=== PATIENT | male | born 1960 | race Asian ===

== ENCOUNTER 2021-11-26 15:08 | Observation (INO) | payer OTHER ==
[2021-11-26] MEDS ORDERED: MORPHINE 4 MG/ML SYR ONE ×2 (15:45→18:10)
[2021-11-26] MEDS ORDERED: ONDANSETRON 4 MG/2 ML VIAL ONE (15:45)
[2021-11-26 15:47] LABS: Absolute Lymphocytes (CBC) 0.8 K/uL (0.7-4.9); Hematocrit 47.3 % (39.6-49.0); Lymphocytes % 6.5 % (15.3-44.8); MPV 9.2 fL (7.6-11.3); RBC Red Blood Cell Count 5.47 M/uL (4.33-5.43)
[2021-11-26] MEDS ORDERED: TETANUS & DIPHTHERIA TOX,ADULT 0.5 ML VIAL ONE (15:47)
[2021-11-26 15:51] LABS: Protime INR 1.05
[2021-11-26 16:00] LABS: Albumin 4.4 g/dL (3.4-5.0); Bilirubin Total 0.9 mg/dL (0.2-1.0); Potassium 3.8 mmol/L (3.5-5.1); Protein, Total 7.5 g/dL (6.4-8.2)
[2021-11-26 16:46] LABS: Blood Morphology Comment NOT SEEN (NOT SEEN); Platelet Estimate ADEQ; White Blood Cell Scan OK (OK)
[2021-11-26 21:53] LABS: Protime INR 1.07
[2021-11-27] MEDS ORDERED: HYDROCODONE/APAP 5/325 MG TAB ONE ×2 (00:20→10:55)
[2021-11-27] MEDS ORDERED: NA CHLORIDE 0.9% 250 ML ONE (01:03)
[2021-11-27] MEDS ORDERED: CROTALIDAE ANTIVENIM 1 GM VIAL IV ONE ×2 (01:04)
[2021-11-27 03:27] LABS: SARS-COV-2 RT PCR NEGATIVE (NEGATIVE)
--- NOTE | 2021-11-27 03:28 | EDPHYS ---
Physician Documentation [facility] Name: Everton Keane Age: 60 yrs Sex: Male : 1960 Arrival Date: 11/26/2021 Time: 15:09 Bed 27 Private MD: Sia Cooper ED Physician Tuan Bennett HPI: 11/26 15:46 This 60 yrs old Male presents to ER via Ambulatory with complaints of Snake bite. ma2 15:46 Onset: The symptoms/episode began/occurred suddenly, 1 hour(s) ago. Associated signs ma2 and symptoms: Pertinent negatives: fever, loss of consciousness, numbness distal to wound, pain at site. Severity of symptoms: At their worst the symptoms were mild, in the emergency department the symptoms are unchanged. Patient had snakebite copperhead bite to ring and thumb, there is mild swelling of both ring, thumb finger and hand, however according to patient swelling has improved. No swelling beyond the wrist.. Historical: - Allergies: 15:24 No Known Allergies; iw - Immunization history:: Adult Immunizations unknown. - Social history:: Smoking status: unknown. - Family history:: not pertinent. ROS: 15:46 Constitutional: Negative for fever, chills, and weight loss. ma2 15:46 All other systems are negative. Exam: 15:46 Constitutional: This is a well developed, well nourished patient who is awake, alert, ma2 and in no acute distress. Chest/axilla: Normal chest wall appearance and motion. Nontender with no deformity. No lesions are appreciated. Cardiovascular: Regular rate and rhythm with a normal S1 and S2. No gallops, murmurs, or rubs. Normal PMI, no JVD. No pulse deficits. Respiratory: Lungs have equal breath sounds bilaterally, clear to auscultation and percussion. No rales, rhonchi or wheezes noted. No increased work of breathing, no retractions or nasal flaring. Abdomen/GI: Soft, non-tender, with normal bowel sounds. No distension or tympany. No guarding or rebound. No evidence of tenderness throughout. Skin: Warm, dry with normal turgor. Normal color with no rashes, no lesions, and no evidence of cellulitis. MS/ Extremity: To snake bites to left finger thumb and ring, there is swelling of both fingers involved the hand as well, there is no swelling beyond the wrist, no compartment syndrome cap refill is brisk and is well vascularized, otherwise pulses equal, no cyanosis. Neurovascular intact. Full, normal range of motion. Neuro: Awake and alert, GCS 15, oriented to person, place, time, and situation. Cranial nerves II-XII grossly intact. Motor strength 5/5 in all extremities. Sensory grossly intact. Cerebellar exam normal. Normal gait. Vital Signs: 15:30 BP 149 / 97; Pulse 85; Resp 18; Pulse Ox 98% on R/A; ph 16:59 BP 136 / 89; Pulse 57; Resp 18; Pulse Ox 98% on R/A; ph 18:31 BP 135 / 80; Pulse 74; Resp 18; Pulse Ox 96% on R/A; ph 19:39 BP 153 / 87; Pulse 75; Resp 18 S; Pulse Ox 98% on R/A; as6 22:06 BP 150 / 91; Pulse 72; Resp 17; Pulse Ox 99% on R/A; Pain 6/10; lg3 23:40 Pulse 76; Resp 18 S; Pulse Ox 98% on R/A; as6 23:41 BP 134 / 87; as6 04/20 00:30 BP 138 / 85; Pulse 60; Resp 18; Pulse Ox 97% on R/A; oe 01:40 BP 159 / 89; Pulse 68; Resp 17; Pulse Ox 95% on R/A; lg3 03:02 BP 113 / 64; Pulse 57; Resp 18 S; Pulse Ox 94% on R/A; as6 05:05 BP 131 / 81; Pulse 53; Resp 14; Pulse Ox 97% on R/A; wm 06:37 BP 131 / 81; Pulse 60; Resp 16; Pulse Ox 96% on R/A; wm MDM: 11/26 15:32 Patient medically screened. ma2 18:39 Differential diagnosis: Snakebite, left arm, has improved, I reassessed at 1839, there ma2 is no spread of the swelling, pain has improved, will continue to monitor for 2 more hours. No indication for intervention at this time. Data reviewed: vital signs, nurses notes. Counseling: I had a detailed discussion with the patient and/or guardian regarding: the historical points, exam findings, and any diagnostic results supporting the discharge/admit diagnosis, the presence of at least one elevated blood pressure reading (>120/80) during this emergency department visit, . ED course: With signout to upcoming ED physician Dr. Bennett due to shift change.. 11/27 02:38 Data interpreted: Pulse oximetry: on room air is 97 %. Interpretation: normal. Response mh7 to treatment: the patient's symptoms have mildly improved after treatment. 11/26 15:32 Order name: PT-INR; Complete Time: 16:14 ny2 11/26 15:32 Order name: Ptt, Activated; Complete Time: 16:14 ny2 11/26 15:32 Order name: CBC with Diff; Complete Time: 17:50 ma2 11/26 15:32 Order name: CMP; Complete Time: 16:14 ny2 11/26 16:47 Order name: CBC Smear Scan; Complete Time: 17:50 EDMS 11/26 20:02 Order name: CPK; Complete Time: 22:09 [facility] 11/26 20:04 Order name: D-Dimer; Complete Time: 22:09 7 11/26 20:19 Order name: Fibrinogen; Complete Time: 22:09 EDMS 11/26 20:49 Order name: Protime (+inr); Complete Time: 22:09 7 11/26 20:49 Order name: Ptt, Activated; Complete Time: 22:09 [facility] 11/27 01:11 Order name: COVID-19/FLU A+B (Document "Date of Onset" if Symptomatic) lg3 11/27 03:27 Order name: COVID-19/FLU A+B; Complete Time: 12:36 EDMS Administered Medications: 11/26 16:00 Drug: Zofran (Ondansetron) 4 mg Route: IVP; Site: right forearm; ph 18:33 Follow up: Response: No adverse reaction; Nausea is decreased ph 16:03 Drug: morphine 4 mg Route: IVP; Site: right forearm; ph 16:15 Follow up: Response: No adverse reaction; Pain is decreased ph 18:15 Drug: Tetanus-Diphtheria Toxoid Adult 0.5 ml {Body Former: [employer]. Exp: ph 10/19/2023. Lot #: [id number]. } Route: IM; Site: left deltoid; 18:32 Follow up: Response: No adverse reaction ph 18:30 Drug: morphine 4 mg Route: IVP; Site: right forearm; ph 18:32 Follow up: Response: No adverse reaction; RASS: Alert and Calm (0) ph 11/27 00:19 Drug: HYDROcodone-acetaminophen 5 mg-325 mg 1 tabs Route: PO; lg3 00:19 Follow up: Response: No adverse reaction lg3 01:35 Drug: CroFab 4 vials Route: IV; Rate: per protocol; Site: right forearm; as6 03:03 Follow up: Response: No adverse reaction; IV Status: Completed infusion; IV Intake: as6 250ml Disposition Summary: 11/27/21 02:40 Hospitalization Ordered Hospitalization Status: Inpatient Admission [facility] Provider: Pranav Dunn Condition: Stable [facility] Problem: new [facility] Symptoms: have improved [facility] Bed/Room Type: Standard [facility] Location: Telemetry/MedSurg (Inpatient)(11/27/21 09:14) bd Room Assignment: [facility](11/27/21 09:14) bd Diagnosis - Snake bite, Left Hand [facility] Forms: - Medication Reconciliation Form [facility] - SBAR form [facility] Signatures: Dispatcher [employer] EDMS Valerie Melton Corey, MD MD cha Williams, Irene, RN RN Sakshi Santos RN RN ph Garcia, Cindy, RN RN Pranav Joseph MD MD ma2 Gibson, Lacie, RN RN lg3 Tuan Bennett MD MD 7 Travis Villalobos RN RN as6 Sybil Duran RN RN vc1 Corrections: (The following items were deleted from the chart) 11/26 20:19 20:04 FIBRINOGEN+COAG.LAB.BRZ ordered. EDMS EDMS 11/27 03:52 02:40 Telemetry/MedSurg (Inpatient) mh7 cg 03:52 02:40 mh7 cg 09:14 03:52 [facility] ER HOLD cg bd 09:14 03:52 ERHOLD- cg bd
--- NOTE | 2021-11-27 03:28 | ER ---
Nurse's Notes [facility] Name: Everton Keane Age: 60 yrs Sex: Male : 1960 Arrival Date: 11/26/2021 Time: 15:09 Bed 27 Private MD: Sia Cooper Diagnosis: Snake bite, Left Hand Presentation: 11/26 15:22 Chief complaint: Patient states: got bit by a snake about 3 hours ago, appears to be a iw "baby copperhead", bite to left thumb, left middle finger , swelling to left hand, pt states swelling has gone down some. Coronavirus screen: At this time, the client does not indicate any symptoms associated with coronavirus-19. Ebola Screen: Patient negative for fever greater than or equal to 101.5 degrees Fahrenheit, and additional compatible Ebola Virus Disease symptoms Patient denies exposure to infectious person. Patient denies travel to an Ebola-affected area in the 21 days before illness onset. No symptoms or risks identified at this time. Onset of symptoms was November 26, 2021. 15:22 Method Of Arrival: Ambulatory iw 15:22 Acuity: HODAN 2 iw 15:30 Initial Sepsis Screen: Does the patient meet any 2 criteria? No. Patient's initial ph sepsis screen is negative. Does the patient have a suspected source of infection? No. Patient's initial sepsis screen is negative. Risk Assessment: Do you want to hurt yourself or someone else? Patient reports no desire to harm self or others. Triage Assessment: 22:07 Bite description: by a snake. lg3 22:07 Bite description: animal information: vaccination(s) is unknown. lg3 Historical: - Allergies: 15:24 No Known Allergies; iw - Immunization history:: Adult Immunizations unknown. - Social history:: Smoking status: unknown. - Family history:: not pertinent. Screenin:28 Abuse screen: Denies threats or abuse. Denies injuries from another. Nutritional ph screening: No deficits noted. Tuberculosis screening: No symptoms or risk factors identified. Fall Risk None identified. Assessment: 15:26 Reassessment: skin marked and timed where swelling ends, approximately above wrist. ss 15:33 General: Appears in no apparent distress. well groomed, Behavior is calm, cooperative, ph appropriate for age. Pain: Complains of pain in left hand Pain radiates to dorsal aspect of left forearm and left wrist. Neuro: Level of Consciousness is awake, alert, obeys commands, Oriented to person, place, time, situation. Cardiovascular: Capillary refill < 3 seconds in bilateral fingers Patient's skin is warm and dry. Respiratory: Airway is patent Respiratory effort is even, unlabored, Respiratory pattern is regular, symmetrical. Derm: Skin is healthy with good turgor, Skin is pink, warm \\T\\ dry. 15:35 Musculoskeletal: Circulation, motion, and sensation intact. Range of motion: intact in ph all extremities. Musculoskeletal: Swelling present in left hand. Injury Description: Bite sustained to palmar aspect of distal phalanx of left middle finger and palmar aspect of distal phalanx of left thumb caused by a snake. 16:59 Reassessment: Patient appears in no apparent distress at this time. Patient and/or ph family updated on plan of care and expected duration. Pain level reassessed. Patient is alert, oriented x 3, equal unlabored respirations, skin warm/dry/pink. Pt reports that pain has improved after IV morphine. 17:45 Reassessment: Swelling noted to have progressed up arm, pt also c/o increased pain, ERP ph notified, see MAR. 19:39 Derm: Musculoskeletal: Swelling present in palmar aspect of distal phalanx of left as6 thumb and palmar aspect of distal phalanx of left middle finger and left arm and left wrist and dorsal aspect of left forearm and left hand. 19:40 Reassessment: Patient appears in no apparent distress at this time. as6 20:44 General: poison control recommendation repeat coags, IV fluids, elevate extremity, as6 monitor for 2-3 more hours. Spoke with Karin. . 22:04 Reassessment: swelling noted to have progressed up the left forearm. skin marked and lg3 timed. 11/27 00:21 Reassessment: Patient appears in no apparent distress at this time. Patient and/or lg3 family updated on plan of care and expected duration. Pain level reassessed. Patient is alert, oriented x 3, equal unlabored respirations, skin warm/dry/pink. 00:27 Neuro: Reports. Cardiovascular: Pulses are palpable in left radial artery. as6 01:41 Reassessment: Patient appears in no apparent distress at this time. Patient and/or lg3 family updated on plan of care and expected duration. Pain level reassessed. Patient is alert, oriented x 3, equal unlabored respirations, skin warm/dry/pink. Vital Signs: 11/26 15:30 BP 149 / 97; Pulse 85; Resp 18; Pulse Ox 98% on R/A; ph 16:59 BP 136 / 89; Pulse 57; Resp 18; Pulse Ox 98% on R/A; ph 18:31 BP 135 / 80; Pulse 74; Resp 18; Pulse Ox 96% on R/A; ph 19:39 BP 153 / 87; Pulse 75; Resp 18 S; Pulse Ox 98% on R/A; as6 22:06 BP 150 / 91; Pulse 72; Resp 17; Pulse Ox 99% on R/A; Pain 6/10; lg3 23:40 Pulse 76; Resp 18 S; Pulse Ox 98% on R/A; as6 23:41 BP 134 / 87; as6 11/27 00:30 BP 138 / 85; Pulse 60; Resp 18; Pulse Ox 97% on R/A; oe 01:40 BP 159 / 89; Pulse 68; Resp 17; Pulse Ox 95% on R/A; lg3 03:02 BP 113 / 64; Pulse 57; Resp 18 S; Pulse Ox 94% on R/A; as6 05:05 BP 131 / 81; Pulse 53; Resp 14; Pulse Ox 97% on R/A; wm 06:37 BP 131 / 81; Pulse 60; Resp 16; Pulse Ox 96% on R/A; wm ED Course: 11/26 15:09 Patient arrived in ED. am2 15:09 Sia Cooper MD is Private Physician. am2 15:24 Triage completed. iw 15:28 Sakshi Santos, MAJOR is Primary Nurse. ph 15:29 Patient has correct armband on for positive identification. Placed in gown. Bed in low ph position. Call light in reach. Side rails up X 1. Pulse ox on. NIBP on. Door closed. Noise minimized. 15:31 Pranav Joseph MD is Attending Physician. ma2 15:32 Arm band placed on. ph 15:50 Initial lab(s) drawn, by in, sent to lab. Inserted saline lock: 20 gauge in right ph forearm, using aseptic technique. Blood collected. 19:18 Attending Physician role handed off by Pranav Joseph MD [email or web address] 19:18 Tuan Bennett MD is Attending Physician. [facility] 11/27 02:39 Pranav Dunn MD is Hospitalizing Provider. [email or web address] 05:06 brusher hand on. Pulse ox on. NIBP on. wm Administered Medications: 11/26 16:00 Drug: Zofran (Ondansetron) 4 mg Route: IVP; Site: right forearm; ph 18:33 Follow up: Response: No adverse reaction; Nausea is decreased ph 16:03 Drug: morphine 4 mg Route: IVP; Site: right forearm; ph 16:15 Follow up: Response: No adverse reaction; Pain is decreased ph 18:15 Drug: Tetanus-Diphtheria Toxoid Adult 0.5 ml {[employer]ator: [email or web address]. Exp: ph 10/19/2023. Lot #: [id number]. } Route: IM; Site: left deltoid; 18:32 Follow up: Response: No adverse reaction ph 18:30 Drug: morphine 4 mg Route: IVP; Site: right forearm; ph 18:32 Follow up: Response: No adverse reaction; RASS: Alert and Calm (0) ph 11/27 00:19 Drug: HYDROcodone-acetaminophen 5 mg-325 mg 1 tabs Route: PO; lg3 00:19 Follow up: Response: No adverse reaction lg3 01:35 Drug: CroFab 4 vials Route: IV; Rate: per protocol; Site: right forearm; as6 03:03 Follow up: Response: No adverse reaction; IV Status: Completed infusion; IV Intake: as6 250ml Intake: 03:03 IV: 250ml; Total: 250ml. as6 Outcome: 02:40 Decision to Hospitalize by Provider. [facility] 12:49 Patient left the ED. iw Signatures: Cher Whittington RN MAJOR Samira Arteaga RN RN Sakshi Santos RN RN Kris Grant Amanda 2 Pranav Joseph MD MD ma2 Marie Mancilla RN RN lg3 Tuan Bennett MD MD 7 Keri Guillen Travis Villalobos RN RN as6
--- NOTE | 2021-11-27 03:56 | P.HP ---
Certification for Inpatient Patient admitted to: Observation With expected LOS: <2 Midnights Patient will require the following post-hospital care: None Practitioner: I am a practitioner with admitting privileges, knowledge of patient current condition, hospital course, and medical plan of care. Services: Services provided to patient in accordance with Admission requirements found in Title 42 Section 412.3 of the Code of Federal Regulations <Carolyn Azevedo - Last Filed: 11/27/21 04:17> Patient History Date of Service: 11/27/21 Reason for admission: Snake Bite History of Present Illness: Patient is a 60-year-old male with HLD who presented to the ED after a snake bite to the left hand while doing yard work today. He reports he did not initially see the snake but felt 2 separate bites to the distal left thumb and distal left middle finger and eventually found the snake and described it as a "baby copperhead." Patient reports the initial incident occurred around 10:30 AM. He eventually reported to the ER around 1530 where swelling was noted up to his mid forearm. He reports that his only symptom is pain and tightness in the left hand and forearm. Labs remarkable for WBC 12, CPK 406, D-dimer 1414. Poison control was contacted and recommended 4 units of CroFab. He also received Zofran, morphine, Tdap. Vital signs remained stable, patient states that his pain has improved. Upon my assessment, the swelling appears to have also improved. Areas of eschar noted to the left distal thumb and left distal middle finger. Poison control recommended patient be monitored for 12 hours after admission of CroFab (administered at 1:30). Will admit patient for further observation. Home medications list reviewed: Yes (NA) - Past Medical/Surgical History Diabetic: No -: HLD -: Nephrectomy (as a child) -: Ureteral Stent Psychosocial/ Personal History: Patient is a and lives at home with his son. - Family History Father -: Cancer - Social History Smoking Status: Never smoker Alcohol use: No CD- Drugs: No Caffeine use: Yes Place of Residence: Home <Carolyn Azevedo - Last Filed: 11/27/21 04:17> Date of Service: 11/27/21 <Pranav Dunn - Last Filed: 11/28/21 09:12> Review of Systems Musculoskeletal: Hand Pain, As per HPI <Carolyn Azevedo - Last Filed: 11/27/21 04:17> Physical Examination - Physical Exam General: Alert, In no apparent distress HEENT: Atraumatic, PERRLA, Mucous membr. moist/pink, EOMI, Sclerae nonicteric Neck: Supple, 2+ carotid pulse no bruit, No LAD, Without JVD or thyroid abnormality Respiratory: Clear to auscultation bilaterally, Normal air movement Cardiovascular: Regular rate/rhythm, Normal S1 S2 Gastrointestinal: Normal bowel sounds, No tenderness Musculoskeletal: No erythema, No warmth Integumentary: Tenderness/swelling, Other (snake bite left distal thumb and distal middle finger ) Neurological: Normal gait, Normal speech, Normal strength at 5/5 x4 extr, Normal tone, Normal affect - Studies Laboratory Data (last 24 hrs) 11/26/21 21:07: PT 11.8, INR 1.07, APTT 30.1 11/26/21 15:33: Sodium 140, Potassium 3.8, BUN 10, Creatinine 1.13, Glucose 136 H, Total Bilirubin 0.9, AST 24, ALT 27, Alkaline Phosphatase 78 11/26/21 15:33: WBC 12.0 H, Hgb 16.0, Hct 47.3, Plt Count 126 L 11/26/21 15:33: PT 11.6, INR 1.05, APTT 30.1 <Carolyn Azevedo - Last Filed: 11/27/21 04:17> Assessment and Plan - Problems (Diagnosis) (1) Bite, snake, venomous Current Visit: Yes Status: Acute Qualifiers: Encounter type: initial encounter Injury intent: accidental or unintentional Qualified Code(s): T63.001A - Toxic effect of unspecified snake venom, accidental (unintentional), initial encounter - Plan -Patient received CroFab at 0130 and poison control recommended observation for 12 hours following. Vital signs remained stable. Patient's symptoms have imp roved. Will monitor for any new or worsening symptoms. -CPK and D-dimer elevated. Other coags within normal limits -Pain control with [place] Discharge Plan: Home Plan to discharge in: 24 Hours - Advance Directives Does patient have a Living Will: No Does patient have a Durable POA for Healthcare: No - Code Status/Comfort Care Code Status Assessed: Yes (Full) Critical Care: No Time Spent Managing Pts Care (In Minutes): 50 <Carolyn Azevedo - Last Filed: 11/27/21 04:17> Date of Service: 11/27/21 Subjective: HPI as mentioned above Physical Examination: Vitals: Afebrile vital signs are stable Physical exam: Cardiovascular: Within normal limits. Lungs: Within normal limits Abdomen: Within normal limits Neuro: Awake, alert, oriented to person place and time Assessment: 1. Snakebite Plan: 1. Continue with current plan of care as mentioned above <Pranav Dunn - Last Filed: 11/28/21 09:12>
[2021-11-27] MEDS ORDERED: ONDANSETRON 4 MG/2 ML VIAL IV PRN (05:15)
[2021-11-27] MEDS: HYDROCODONE/APAP 5/325 MG TAB PO PRN ×2 (11:03→18:20)
[2021-11-27 11:46] VITALS: O2SAT 99
[2021-11-27 15:10] LABS: Albumin 3.7 g/dL (3.4-5.0); Bilirubin Direct 0.1 mg/dL (0-0.2); Bilirubin Total 0.9 mg/dL (0.2-1.0); Protein, Total 6.7 g/dL (6.4-8.2)
[2021-11-28] MEDS: HYDROCODONE/APAP 5/325 MG TAB PO PRN (07:18)
[2021-11-28 08:12] VITALS: BP 120/67; TEMP 97.6
--- NOTE | 2021-11-28 09:12 | P.DS ---
Discharge Date: 11/28/21 Disposition: ROUTINE DISCHARGE Discharge Condition: GOOD Reason for Admission: Snake Bite Brief History of Present Illness: Patient is a 60-year-old male with HLD who presented to the ED after a snake bite to the left hand while doing yard work today. He reports he did not initially see the snake but felt 2 separate bites to the distal left thumb and distal left middle finger and eventually found the snake and described it as a "baby copperhead." Patient reports the initial incident occurred around 10:30 AM. He eventually reported to the ER around 1530 where swelling was noted up to his mid forearm. He reports that his only symptom is pain and tightness in the left hand and forearm. Labs remarkable for WBC 12, CPK 406, D-dimer 1414. Poison control was contacted and recommended 4 units of CroFab. He also re ceived Zofran, morphine, Tdap. Vital signs remained stable, patient states that his pain has improved. Upon my assessment, the swelling appears to have also improved. Areas of eschar noted to the left distal thumb and left distal middle finger. Poison control recommended patient be monitored for 12 hours after admission of CroFab (administered at 1:30). Will admit patient for further observation. Hospital Course: She was treated with antivenom. He did have a small drainage performed on his finger. He had a blood blister that we drained with an 18g needle. There was no purulent drainage. Patient will be discharged on antibiotics and pain medication. Vital Signs/Physical Exam: Temp Pulse Resp BP Pulse Ox 97.6 F 74 18 120/67 98 11/28/21 08:00 11/28/21 08:00 11/28/21 08:06 11/28/21 08:00 11/28/21 08:06 General: Alert, In no apparent distress, Oriented x3 Laboratory Data at Discharge: WBC 12.0 K/uL (4.3-10.9) H 11/26/21 15:33 Hgb 16.0 g/dL (13.6-17.9) 11/26/21 15:33 Hct 47.3 % (39.6-49.0) 11/26/21 15:33 Plt Count 126 K/uL (152-406) L 11/26/21 15:33 PT 11.8 SECONDS (9.5-12.5) 11/26/21 21:07 INR 1.07 11/26/21 21:07 APTT 30.1 SECONDS (24.3-36.9) 11/26/21 21:07 Sodium 140 mmol/L (136-145) 11/26/21 15:33 Potassium 3.8 mmol/L (3.5-5.1) 11/26/21 15:33 BUN 10 mg/dL (7-18) 11/26/21 15:33 Creatinine 1.13 mg/dL (0.55-1.3) 11/26/21 15:33 Glucose 136 mg/dL (74-106) H 11/26/21 15:33 Total Bilirubin 0.9 mg/dL (0.2-1.0) 11/27/21 14:17 AST 24 U/L (15-37) 11/27/21 14:17 ALT 25 U/L (12-78) 11/27/21 14:17 Alkaline Phosphatase 67 U/L (45-117) 11/27/21 14:17 Home Medications: Hydrocodone 5/APAP 325 [[place] 5/325*] 1 tab PO Q4H PRN #30 tab 11/28/21 Minocycline HCl 100 mg PO BID #14 capsule 11/28/21 Smz./Tmp. [Bactrim Ds 800 MG/160 MG] 1 tab PO BID #14 tab 11/28/21 New Medications: Smz./Tmp. [Bactrim Ds 800 MG/160 MG] 1 tab PO BID #14 tab Minocycline HCl 100 mg PO BID #14 capsule Hydrocodone 5/APAP 325 [[place] 5/325*] 1 tab PO Q4H PRN #30 tab PRN Reason: Pain Scale 5-7 (Moderate) Physician Discharge Instructions: -DC IV and DC home -Follow-up with PCP in 1 to 2 weeks -Please call Dr. Dunn at [phone] if any questions regarding hospital stay -Please call nursing station at [phone] if any nursing or medication questions -Return to the emergency room if symptoms worsen Diet: Regular Activity: Fall precautions Followup: Sia Cooper, DO [Primary Care Provider] - Time spent managing pt's care (in minutes): 35
== END 2021-11-28 09:49 | disposition home or self-care (01) ==
LOC: ER 15:08 → ERHOLD 11-27 04:08 → 4TH 11-27 13:14
PROVIDERS: ADMIT Hospitalist; ATTEND Hospitalist
DX: T63.001A Toxic effect of unspecified snake venom, accidental (unintentional), initial encounter (principal); Y92.007 Garden or yard of unspecified non-institutional (private) residence as the place of occurrence of the external cause; E78.5 Hyperlipidemia, unspecified; Z23 Encounter for immunization; Z20.822 Contact with and (suspected) exposure to COVID-19; Z90.5 Acquired absence of kidney; Z80.9 Family history of malignant neoplasm, unspecified
CPT/HCPCS: 96365; 85025; 36415; 85384 ×2; 82550 ×2; 85610 ×2; 85379 ×2; 80076; 85730 ×2; 80053; 0240U; 90471; 90714; 96375; 99284; J0840 ×2; J7050; J2405; G0378 ×3